=== PATIENT | female | born 1970 | race Caucasian/White ===

== ENCOUNTER 2021-06-25 07:59 | Inpatient (IN) | payer OTHER ==
[~2021-06-25] VITALS: Ht 157.5 cm; Wt 51.7 kg
[2021-06-25 09:51] LABS: BUN/CREATININE RATIO 32 (0-10)
[2021-06-25 10:22] LABS: HEMOGLOBIN 12.7 gm/dl (12.3-15.3); RED BLOOD COUNT 4.35 M/UL (4.00-5.10); WHITE BLOOD COUNT 27.1 K/UL (4.5-11.0)
--- NOTE | 2021-06-25 21:31 | NUR ---
PATIENT FSBS [id number]. CALLED DR. MONDRAGON WITH NO ANSWER. LEFT MESSAGE ASKING TO RETURN CALL.
[2021-06-26 02:47] LABS: HEMOGLOBIN 10.4 gm/dl (12.3-15.3); RED BLOOD COUNT 3.47 M/UL (4.00-5.10)
[2021-06-26 06:47] LABS: BUN/CREATININE RATIO 33 (0-10)
[2021-06-27 05:17] LABS: BUN/CREATININE RATIO 18 (0-10)
[2021-06-27 09:59] LABS: HEMOGLOBIN 10.1 gm/dl (12.3-15.3); RED BLOOD COUNT 3.33 M/UL (4.00-5.10)
[2021-06-27 10:00] LABS: WHITE BLOOD COUNT 17.4 K/UL (4.5-11.0)
[2021-06-28 02:51] LABS: HEMOGLOBIN 9.8 gm/dl (12.3-15.3); RED BLOOD COUNT 3.32 M/UL (4.00-5.10); WHITE BLOOD COUNT 17.6 K/UL (4.5-11.0)
[2021-06-28 03:30] LABS: BUN/CREATININE RATIO 8 (0-10)
[2021-06-29 03:01] LABS: HEMOGLOBIN 9.1 gm/dl (12.3-15.3); RED BLOOD COUNT 3.07 M/UL (4.00-5.10); WHITE BLOOD COUNT 19.5 K/UL (4.5-11.0)
[2021-06-29 03:42] LABS: BUN/CREATININE RATIO 15 (0-10)
[2021-06-30 09:38] LABS: HEMOGLOBIN 8.7 gm/dl (12.3-15.3); RED BLOOD COUNT 2.88 M/UL (4.00-5.10)
[2021-06-30 09:47] LABS: WHITE BLOOD COUNT 14.1 K/UL (4.5-11.0)
[2021-07-01 03:50] LABS: BUN/CREATININE RATIO 10 (0-10)
[2021-07-01 10:35] LABS: HEMOGLOBIN 8.6 gm/dl (12.3-15.3); RED BLOOD COUNT 2.86 M/UL (4.00-5.10); WHITE BLOOD COUNT 13.4 K/UL (4.5-11.0)
[2021-07-02 04:36] LABS: HEMOGLOBIN 8.2 gm/dl (12.3-15.3); RED BLOOD COUNT 2.75 M/UL (4.00-5.10); WHITE BLOOD COUNT 11.8 K/UL (4.5-11.0)
[2021-07-02 05:17] LABS: BUN/CREATININE RATIO 9 (0-10)
[2021-07-02 16:59] LABS: HEMOGLOBIN 8.9 gm/dl (12.3-15.3); RED BLOOD COUNT 2.98 M/UL (4.00-5.10)
[2021-07-02 17:05] LABS: WHITE BLOOD COUNT 16.6 K/UL (4.5-11.0)
[2021-07-02 17:24] LABS: BUN/CREATININE RATIO 9 (0-10)
[2021-07-03 04:23] LABS: HEMOGLOBIN 8.7 gm/dl (12.3-15.3); RED BLOOD COUNT 2.95 M/UL (4.00-5.10); WHITE BLOOD COUNT 16.3 K/UL (4.5-11.0)
[2021-07-03 05:05] LABS: BUN/CREATININE RATIO 15 (0-10)
[2021-07-04 03:01] LABS: HEMOGLOBIN 8.3 gm/dl (12.3-15.3); RED BLOOD COUNT 2.77 M/UL (4.00-5.10)
[2021-07-04 03:16] LABS: WHITE BLOOD COUNT 11.1 K/UL (4.5-11.0)
[2021-07-04 03:33] LABS: BUN/CREATININE RATIO 10 (0-10)
[2021-07-05 03:20] LABS: HEMOGLOBIN 8.2 gm/dl (12.3-15.3); RED BLOOD COUNT 2.75 M/UL (4.00-5.10); WHITE BLOOD COUNT 10.4 K/UL (4.5-11.0)
[2021-07-05 03:43] LABS: BUN/CREATININE RATIO 6 (0-10)
--- NOTE | 2021-07-05 19:11 | NUR ---
1230 Explained to patient that ortho doctor wanted her to elevate arm from IV pole to relieve edema to her left hand. She stated "I am not doing that. I have to get up & down too much." She did let me elevate her hand on pillows.
[2021-07-06 05:30] LABS: HEMOGLOBIN 8.7 gm/dl (12.3-15.3); RED BLOOD COUNT 2.93 M/UL (4.00-5.10); WHITE BLOOD COUNT 9.3 K/UL (4.5-11.0)
[2021-07-06 05:48] LABS: BUN/CREATININE RATIO 9 (0-10)
[2021-07-08 02:46] LABS: HEMOGLOBIN 8.1 gm/dl (12.3-15.3); RED BLOOD COUNT 2.76 M/UL (4.00-5.10); WHITE BLOOD COUNT 9.1 K/UL (4.5-11.0)
[2021-07-08 03:31] LABS: BUN/CREATININE RATIO 11 (0-10)
--- NOTE | 2021-07-08 10:21 | NUR ---
1021-PT REFUSES TO ELEVATE LEFT HAND ON IV POLE. NOTIFIED
--- NOTE | 2021-07-08 14:05 | NUR ---
1400- PT HAS WOUND VAC TO LEFT HAND. PT STATES SHE DOES NOT REMEMEBER WHEN IT WAS CHANGED LAST. NO ORDER TO CHANGE WOUND VAC DRESSING. NOTIFIED FREDDIE WITH ORTHOPEDICS. FREDDIE STATES NOT TO CHANGE DRESSING PT IS HAVING IRRIGATION AND DEBRIDEMENT TOMORROW 07/08/21.
[2021-07-09 03:39] LABS: HEMOGLOBIN 8.3 gm/dl (12.3-15.3); RED BLOOD COUNT 2.81 M/UL (4.00-5.10)
[2021-07-09 04:09] LABS: BUN/CREATININE RATIO 11 (0-10)
[2021-07-12 04:42] LABS: HEMOGLOBIN 8.9 gm/dl (12.3-15.3); RED BLOOD COUNT 3.05 M/UL (4.00-5.10); WHITE BLOOD COUNT 6.3 K/UL (4.5-11.0)
[2021-07-12 05:16] LABS: BUN/CREATININE RATIO 10 (0-10)
--- NOTE | 2021-07-13 13:39 | NUR ---
0915-PATIENT RETURNED FROM SURGERY, NO CHANGE NOTED FROM PREVIOUS ASSESSMENTS, SHE HAS A NEW WOUND VAC TO THE LEFT HAND SHE IS ABLE TO WIGGLE HER FINGERS WITH SOME DIFFICULTY SHE CANNOT STRAIGHTEN HER FINGERS ALL THE WAY HOWEVER THEY CAN BE OPENED PASSIVELY. CAPILLARY REFILL IS BRISK AND HER FINGERS ARE WARM DESPITE A PALE COLOR. SHE IS ON ROOM AIR FULLY ALERT AND ORIENTED AND DENYING PAIN AT THE MOMENT. SHE HAS NO NEW IVS OR SKIN ISSUES, HER VITAL SIGNS ARE STABLE, TELE REAPPLIED.
[2021-07-14 13:41] LABS: HEMOGLOBIN 9.4 gm/dl (12.3-15.3); RED BLOOD COUNT 3.17 M/UL (4.00-5.10); WHITE BLOOD COUNT 6.9 K/UL (4.5-11.0)
[2021-07-14 14:05] LABS: BUN/CREATININE RATIO 23 (0-10)
[2021-07-15] MEDS ORDERED: GLUCOSE TEST S1 EACH MC (09:41)
[2021-07-15] MEDS ORDERED: NOVOLOG MI100 UNIT/2 SC (09:41)
[2021-07-15] MEDS ORDERED: ROCEPHIN IM/I2000 MG IV (09:41)
[2021-07-15] MEDS ORDERED: HYDROCODON-ACE1 EAC2 PO (09:41)
[2021-07-15] MEDS ORDERED: ACCU-CHEK FAST1 EAC1 MC (09:41)
[2021-07-15] MEDS ORDERED: INSULIN SYRING1 EA44 MC (09:41)
[2021-07-15] MEDS ORDERED: ACCU-CHEK GUID1 EAC3 MC (09:41)
[2021-07-15] MEDS ORDERED: THERAGRAN M TAB1 EA PO (09:41)
[2021-07-15] MEDS ORDERED: FERROUS GLUCON324 M1 PO (09:50)
== END 2021-07-15 18:06 | disposition home or self-care (01) | DRG 853 ==
LOC: ER1 07:59 → M/S 11:23 → CDU 11:23 → M/S 14:09
PROVIDERS: Internal Medicine; Internal Medicine Infectious Disease; Nurse Practitioner Family; Orthopaedic Surgery; Physician Assistant; Registered Nurse; ADMIT Internal Medicine
PROC: 3E03329 Introduction of Other Anti-infective into Peripheral Vein, Percutaneous Approach (ICD-10-PCS; 2021-06-25)
PROC: 0JBK0ZZ Excision of Left Hand Subcutaneous Tissue and Fascia, Open Approach (ICD-10-PCS; 2021-06-25)
PROC: 0J9K0ZZ Drainage of Left Hand Subcutaneous Tissue and Fascia, Open Approach (ICD-10-PCS; principal; 2021-06-28 11:20)
PROC: 0L980ZZ Drainage of Left Hand Tendon, Open Approach (ICD-10-PCS; 2021-07-02)
PROC: 0X6 Anatomical Regions, Upper Extremities, Detachment (ICD-10-PCS; 2021-07-09)
PROC: 0JBK0ZZ Excision of Left Hand Subcutaneous Tissue and Fascia, Open Approach (ICD-10-PCS; 2021-07-13)
DX: A41.01 Sepsis due to Methicillin susceptible Staphylococcus aureus (principal); A48.0 Gas gangrene; L02.512 Cutaneous abscess of left hand; Z20.822 Contact with and (suspected) exposure to COVID-19; M00.842 Arthritis due to other bacteria, left hand; E11.52 Type 2 diabetes mellitus with diabetic peripheral angiopathy with gangrene; E87.1 Hypo-osmolality and hyponatremia; K52.1 Toxic gastroenteritis and colitis; A40.1 Sepsis due to streptococcus, group B; D50.9 Iron deficiency anemia, unspecified; K04.7 Periapical abscess without sinus; I50.9 Heart failure, unspecified; M65.842 Other synovitis and tenosynovitis, left hand; E11.65 Type 2 diabetes mellitus with hyperglycemia; E86.0 Dehydration; R53.81 Other malaise; G56.02 Carpal tunnel syndrome, left upper limb; T50.995A Adverse effect of other drugs, medicaments and biological substances, initial encounter; K64.9 Unspecified hemorrhoids; K82.9 Disease of gallbladder, unspecified; S62.142A Displaced fracture of body of hamate [unciform] bone, left wrist, initial encounter for closed fracture; M77.8 Other enthesopathies, not elsewhere classified; K76.0 Fatty (change of) liver, not elsewhere classified; E87.6 Hypokalemia; W18.30XA Fall on same level, unspecified, initial encounter; Z87.891 Personal history of nicotine dependence; Y92.091 Bathroom in other non-institutional residence as the place of occurrence of the external cause; Y99.8 Other external cause status; Z79.4 Long term (current) use of insulin
CPT/HCPCS: 36415; 70450; 71045; 73090; 73110; 73140; 73200; 73218; 80048; 80053; 80202; 80307; 81001; 82550; 82553; 82607; 82728; 82746; 82962; 83036; 83540; 83550; 83605; 83690; 83735; 84132; 84439; 84443; 84484; 85007; 85025; 85027; 85652; 86140; 87040; 87070; 87077; 87186; 87205; 87449; 93005; 96374; 96375; 99285; C1751; C1788; J0461; J0690; J0696; J1100; J1335; J1650; J1756; J1885; J2001; J2185; J2250; J2370; J2405; J2543; J2704; J3010; J3370; J3480; J7030; J7050; J7070; J7120; Q9967; U0002

== ENCOUNTER → 2021-07-22 | Outpatient (CLI) | payer OTHER ==
[~2021-07-22] MED LIST: ACCU-CHEK FAST1 EAC1 MC; ACCU-CHEK GUID1 EAC3 MC; FERROUS GLUCON324 M1 PO; GLUCOSE TEST S1 EACH MC; HYDROCODON-ACE1 EAC2 PO; INSULIN SYRING1 EA44 MC; NOVOLOG MI100 UNIT/2 SC; ROCEPHIN IM/I2000 MG IV; THERAGRAN M TAB1 EA PO
[2021-07-22 14:17] LABS: HEMOGLOBIN 11.3 gm/dl (12.3-15.3); RED BLOOD COUNT 3.8 M/UL (4.00-5.10)
[2021-07-22 14:43] LABS: BUN/CREATININE RATIO 17 (0-10)
== END ==
LOC: OPSV 13:00
PROVIDERS: Internal Medicine
DX: I96 Gangrene, not elsewhere classified (principal)
CPT/HCPCS: 36415; 80053; 85025; 86140

== ENCOUNTER → 2021-07-24 | Outpatient (CLI) | payer OTHER | LOC: OPSV 13:00 | DX: Z48.01 Encounter for change or removal of surgical wound dressing (principal) | CPT/HCPCS: G0463 ==

== ENCOUNTER → 2021-08-02 | Outpatient (CLI) | payer OTHER ==
[2021-08-02 07:40] LABS: HEMOGLOBIN 11.3 gm/dl (12.3-15.3); RED BLOOD COUNT 3.85 M/UL (4.00-5.10)
[2021-08-02 07:58] LABS: BUN/CREATININE RATIO 11 (0-10)
== END ==
LOC: OPSV 06:58
PROVIDERS: Internal Medicine
DX: I96 Gangrene, not elsewhere classified (principal)
CPT/HCPCS: 36415; 80053; 85025; 86140; 97605

== ENCOUNTER → 2021-08-06 | Outpatient (CLI) | payer OTHER ==
[~2021-08-06] MED LIST changes: +CEFUROXIME500 MG PO; +CLONIDINE HCL0.2 MG PO
== END ==
LOC: OPSV 08-05 13:00
DX: I96 Gangrene, not elsewhere classified (principal)
CPT/HCPCS: 97605

== ENCOUNTER → 2021-08-08 | Outpatient (CLI) | payer OTHER ==
[2021-08-08 13:34] LABS: HEMOGLOBIN 11.8 gm/dl (12.3-15.3); RED BLOOD COUNT 4.1 M/UL (4.00-5.10); WHITE BLOOD COUNT 7.2 K/UL (4.5-11.0)
[2021-08-08 14:09] LABS: BUN/CREATININE RATIO 16 (0-10)
== END ==
LOC: OPSV 08-07 13:00
PROVIDERS: Internal Medicine
DX: I96 Gangrene, not elsewhere classified (principal)
CPT/HCPCS: 80053; 85025; 86140; 97605

== ENCOUNTER → 2021-08-20 | Outpatient (CLI) | payer OTHER ==
[2021-08-20 14:59] LABS: HEMOGLOBIN 11.2 gm/dl (12.3-15.3); RED BLOOD COUNT 3.86 M/UL (4.00-5.10); WHITE BLOOD COUNT 6.9 K/UL (4.5-11.0)
[2021-08-20 15:27] LABS: BUN/CREATININE RATIO 18 (0-10)
== END ==
LOC: OPSV 13:00
PROVIDERS: Internal Medicine
DX: I96 Gangrene, not elsewhere classified (principal)
CPT/HCPCS: 80053; 85025; 86140; C1751

== ENCOUNTER → 2021-08-21 | Outpatient (CLI) | payer OTHER | LOC: OPSV 09:00 | DX: Z45.2 Encounter for adjustment and management of vascular access device (principal) | CPT/HCPCS: G0463 ==

== ENCOUNTER 2021-08-22 13:54 | Emergency (ER) | payer OTHER ==
[~2021-08-22 13:54] MED LIST changes: -CEFUROXIME500 MG PO; -CLONIDINE HCL0.2 MG PO
[2021-08-22 15:55] LABS: HEMOGLOBIN 11.1 gm/dl (12.3-15.3); RED BLOOD COUNT 3.85 M/UL (4.00-5.10); WHITE BLOOD COUNT 5.9 K/UL (4.5-11.0)
[2021-08-22 16:13] LABS: BUN/CREATININE RATIO 16 (0-10)
[2021-08-22] MEDS ORDERED: CLONIDINE HCL0.2 MG PO (17:22)
[2021-08-22] MEDS ORDERED: CEFUROXIME500 MG PO (17:22)
== END 2021-08-22 18:00 | disposition left against medical advice (07) ==
LOC: ER1 13:54
PROVIDERS: Preventive Medicine Occupational Medicine
DX: I10 Essential (primary) hypertension (principal); R07.89 Other chest pain; E11.9 Type 2 diabetes mellitus without complications
CPT/HCPCS: 71045; 80053; 80307; 81001; 82009; 82550; 82553; 83605; 84484; 85025; 85652; 86140; 87040; 87086; 93005; 99283; J7030

== ENCOUNTER → 2021-08-22 | Outpatient (CLI) | payer OTHER | LOC: OPSV 13:00 | DX: Z48.00 Encounter for change or removal of nonsurgical wound dressing (principal); Z45.2 Encounter for adjustment and management of vascular access device | CPT/HCPCS: 97605 ==

== ENCOUNTER → 2021-09-03 | Outpatient (CLI) | payer OTHER ==
[~2021-09-03] MED LIST changes: +CEFUROXIME500 MG PO; +CLONIDINE HCL0.2 MG PO
[2021-09-03 13:42] LABS: HEMOGLOBIN 12.1 gm/dl (12.3-15.3); RED BLOOD COUNT 4.16 M/UL (4.00-5.10); WHITE BLOOD COUNT 7.9 K/UL (4.5-11.0)
[2021-09-03 14:00] LABS: BUN/CREATININE RATIO 19 (0-10)
== END ==
LOC: OPSV 13:00
PROVIDERS: Internal Medicine
DX: I96 Gangrene, not elsewhere classified (principal)
CPT/HCPCS: 80053; 85025; 86140